=== PATIENT | male | born 1960 | race Hispanic/Latino ===

== ENCOUNTER 2018-01-06 05:42 | Emergency (ER) | payer SELFPAY ==
[~2018-01-06] VITALS: Ht 167.6 cm; Wt 82.0 kg
[2018-01-06 06:15] LABS: HEMATOCRIT 52.7 % (39.0-50.0); HEMOGLOBIN 17.7 g/dl (14.0-18.0); IMMATURE GRANULOCYTES 4.8 % (0.0-1.0); MEAN CELL VOLUME 87.3 fL CALC (80.0-100.0); MEAN CORPUSCULAR HGB 29.3 pG CALC (26.0-32.0); MEAN CORPUSCULAR HGB CONC 33.6 g/L CALC (32.0-36.0); NEUT# 16.27 thou/uL (1.82-7.42); RED BLOOD COUNT 6.04 mill/uL (4.70-6.10); RED CELL DISTRI WIDTH 13.4 % (11.5-15.5)
[2018-01-06 06:17] LABS: URINE BLOOD DIPSTICK LARGE (NEGATIVE); URINE COLOR YELLOW; URINE GLUCOSE - DIPSTICK NEGATIVE (NEGATIVE); URINE KETONE NEGATIVE (NEGATIVE); URINE LEUK ESTERASE NEGATIVE (NEGATIVE); URINE NITRITE - DIPSTICK NEGATIVE (Negative); URINE PH 5.5 (4.5-8.0); URINE PROTEIN - DIPSTICK 30 mg/dL (NEG-TRACE); URINE SPECIFIC GRAVITY 1.025
[2018-01-06 06:24] LABS: BARBITURATES NEGATIVE (NEGATIVE); COCAINE NEGATIVE (NEGATIVE); METHADONE NEGATIVE (NEGATIVE); OXCYCODONE NEGATIVE (NEGATIVE); TETRAHYDROCANNABIONOL NEGATIVE (NEGATIVE); TRICYLIC ANTIDEPRESSANTS NEGATIVE (NEGATIVE)
[2018-01-06 06:25] LABS: URINE CLARITY SL CLOUDY
[2018-01-06 06:27] LABS: URINE BILIRUBIN - DIPSTICK NEGATIVE (NEGATIVE)
[2018-01-06 06:29] LABS: ALKALINE PHOSPHATASE 139 u/l (38-126); ANION GAP 37 (6-22 (CALC)); BILIRUBIN, TOTAL 1.5 mg/dL (0.0-1.4); BUN 63 mg/dL (9-20); CARBON DIOXIDE 11 mmol/l (22-30); CHLORIDE 85 mmol/l (95-108); POTASSIUM 5.1 mmol/l (3.5-5.1); SGPT/ALT 202 u/l (21-72); SODIUM 128 mmol/l (137-146); TOTAL PROTEIN 7.3 g/dL (6.3-8.2)
[2018-01-06 06:34] LABS: SGOT/AST 539 u/l (17-59)
[2018-01-06 06:36] LABS: BUN/CREATININE RATIO 20 (12-20 (CALC)); CREATININE 3.1 mg/dL (0.7-1.3); GFR 21 ML/MIN (>=60 (CALC)); GFR FOR AFR.AMER. 25 ML/MIN (>=60 (CALC))
[2018-01-06 06:59] LABS: INTERNATIONAL NORMALIZED RATIO 1.1 RATIO (0.7-1.3); PROTHROMBIN TIME 12.7 SECONDS (9.0-12.5)
[2018-01-06 07:04] LABS: URINE BACTERIA MODERATE hpf; URINE RBC 0-2 RBC/hpf (0-5); URINE SQUAMOUS EPITHELIAL CELL RARE EPI/hpf (0-FEW); URINE WBC 0-2 WBC/hpf (0-5)
[2018-01-06 07:49] LABS: ACT PARTIAL THROMBO TIME 31.3 SECONDS (20.0-32.5)
[2018-01-06 08:52] VITALS: BP 111/56
== END 2018-01-06 08:53 | disposition short-term general hospital (02) | DRG 867 ==
LOC: ED 05:42
PROVIDERS: Emergency Medicine
PROC: 0T9B70Z Drainage of Bladder with Drainage Device, Via Natural or Artificial Opening (ICD-10-PCS; principal; 2018-01-06)
PROC: 0D9670Z Drainage of Stomach with Drainage Device, Via Natural or Artificial Opening (ICD-10-PCS; 2018-01-06)
DX: A48.0 Gas gangrene (principal); A41.9 Sepsis, unspecified organism; N17.9 Acute kidney failure, unspecified; K92.2 Gastrointestinal hemorrhage, unspecified; R00.0 Tachycardia, unspecified
CPT/HCPCS: S0164